=== PATIENT | female | born 1985 | race African-American/Black ===

== ENCOUNTER 2020-08-24 13:09 | Emergency (ER) | payer OTHER, SELFPAY | END 2020-08-24 13:42 | disposition left against medical advice (07) | LOC: ERS 13:09 | DX: R05 Cough (principal); R53.83 Other fatigue; R51.9 Headache, unspecified; Z21 Asymptomatic human immunodeficiency virus [HIV] infection status | CPT/HCPCS: 99283 ==

== ENCOUNTER 2024-07-09 12:54 | Emergency (ER) | payer OTHER, SELFPAY ==
[2024-07-09 13:46] LABS: #Basophils Less than 0.03 10x3/uL (0.0-0.2); %Basophils 0.3 % (0.0-1.0); %Eosinophils 2.4 % (0.0-10.0); %Lymphocytes 26.6 % (21.0-51.0); %Monocytes 9.2 % (0.0-10.0); Hematocrit 37.7 % (36.0-47.0); Hemoglobin 11.2 g/dL (12.0-16.0); Mean Corpuscular HGB CONC 29.7 g/dL (32.0-36.0); Mean Corpuscular Hemoglobin 25.1 pg (27.0-31.0); Mean Corpuscular Volume 84.3 fL (78.0-98.0); Mean Platelet Volume 8.9 fL (7.4-10.4); Platelet Count 289 10x3/uL (130-400); Red Blood Cell (RBC) Count 4.47 mill/uL (4.20-5.40)
[2024-07-09 14:04] LABS: ALT (SGPT) 15 U/L (8-55); AST (SGOT) 19 U/L (5-34); Albumin 3.6 g/dL (3.5-5.0); Alkaline Phosphatase 103 U/L (40-110); Anion Gap 9 mmol/L (10-20); BUN (Urea Nitrogen) 7 mg/dL (7.0-18.7); Bilirubin, Total 0.2 mg/dL (0.2-1.2); Calc. Creatinine Clearance 0 mL/min (70-130); Calcium 8.9 mg/dL (7.8-10.44); Carbon Dioxide 24 mmol/L (22-29); Chloride 108 mmol/L (98-107); Estimated GFR 114; Globulin 5.1 g/dL (2.4-3.5); Glucose 96 mg/dL (70-105); Potassium 3.7 mmol/L (3.5-5.1); Protein, Total 8.7 g/dL (6.0-8.3); Sodium 137 mmol/L (136-145)
[2024-07-09 16:42] LABS: BHCG - Serum Negative (NEGATIVE); Pregs Control Background? CLEAR/WHITE (CLR/WHITE); Pregs Control Bar Appear? YES (CONTROL BAR)
[2024-07-10 13:42] LABS: %CD4 (Helper/Inducer) 15.3 % (30.8-58.5); Absolute CD4 138 /uL (359-1519); Lymphocytes/Gated Cell Count 0.9 x10E3/uL (0.7-3.1); Total Lymphocyte 26 % (Not Estab.); WBC Total Count 3.5 x10E3/uL (3.4-10.8)
== END 2024-07-09 18:15 | disposition home or self-care (01) ==
LOC: ERS 12:54
DX: M25.562 Pain in left knee (principal); R59.9 Enlarged lymph nodes, unspecified; R53.81 Other malaise; B20 Human immunodeficiency virus [HIV] disease
CPT/HCPCS: 36415; 36416; 71046; 80053; 83605; 84703; 85025; 86141; 86361; 87040; 87428

== ENCOUNTER 2024-09-09 16:07 | Emergency (ER) | payer OTHER ==
[2024-09-09 17:00] LABS: #Basophils Less than 0.03 10x3/uL (0.0-0.2); %Basophils 0.3 % (0.0-1.0); %Lymphocytes 21.5 % (21.0-51.0); %Monocytes 7.1 % (0.0-10.0); %Neutrophils 69.8 % (42.0-75.0); Hematocrit 37.7 % (36.0-47.0); Hemoglobin 11.2 g/dL (12.0-16.0); Mean Corpuscular HGB CONC 29.7 g/dL (32.0-36.0); Mean Corpuscular Hemoglobin 24.2 pg (27.0-31.0); Mean Corpuscular Volume 81.6 fL (78.0-98.0); Mean Platelet Volume 8.5 fL (7.4-10.4); Platelet Count 254 10x3/uL (130-400); RBC Distribution Width 17.1 % (11.5-14.5); Red Blood Cell (RBC) Count 4.62 mill/uL (4.20-5.40)
[2024-09-09 17:09] LABS: BHCG - Serum Negative (NEGATIVE); Pregs Control Background? CLEAR/WHITE (CLR/WHITE); Pregs Control Bar Appear? YES (CONTROL BAR)
[2024-09-09 17:18] LABS: Acetaminophen Less than 10 mcg/mL (Less than 10); Alcohol Less than 10.0 mg/dL (Less than 10); Salicylate Less than 8.0 mg/dL (Less than 8.0)
[2024-09-09 17:19] LABS: ALT (SGPT) 24 U/L (8-55); AST (SGOT) 27 U/L (5-34); Albumin 3.4 g/dL (3.5-5.0); Alkaline Phosphatase 104 U/L (40-110); Anion Gap 12 mmol/L (10-20); BUN (Urea Nitrogen) 9 mg/dL (7.0-18.7); Bilirubin, Total 0.1 mg/dL (0.2-1.2); Calc. Creatinine Clearance 0 mL/min (70-130); Calcium 8.6 mg/dL (7.8-10.44); Carbon Dioxide 23 mmol/L (22-29); Chloride 107 mmol/L (98-107); Estimated GFR 112; Globulin 5.2 g/dL (2.4-3.5); Glucose 82 mg/dL (70-105); Protein, Total 8.6 g/dL (6.0-8.3); Sodium 138 mmol/L (136-145)
[2024-09-09 17:21] LABS: Pregnancy Test - Urine (BHCG) Negative (Negative); Pregu Control Bar Appear? YES (CONTROL BAR)
[2024-09-09 17:22] LABS: Pregu Control Background? CLEAR/WHITE (CLR/WHITE); Specific Gravity 1.022 (1.002-1.036)
[2024-09-09 17:27] LABS: Amphetamine Not Detected (NotDetected); Barbiturates Screen Not Detected (NotDetected); Benzodiazepine Screen Not Detected (NotDetected); Cocaine Metabolite Screen Not Detected (NotDetected); Methadone Not Detected (NotDetected); Methamphetamine Not Detected (NotDetected); Opiate Screen Not Detected (NotDetected); Oxycodone Screen Not Detected (NotDetected); Phencyclidine (PCP) Not Detected (NotDetected); THC/Cannabinoid Screen Not Detected (NotDetected); Tricyclic Screen Not Detected (NotDetected)
== END 2024-09-09 23:40 ==
LOC: ERS 16:07
DX: F32.2 Major depressive disorder, single episode, severe without psychotic features (principal); B20 Human immunodeficiency virus [HIV] disease
CPT/HCPCS: 36415; 80053; 80306; 80307; 81025; 84443; 84703; 85025; 99285

== ENCOUNTER 2024-09-30 19:45 | Emergency (ER) | payer OTHER ==
[~2024-09-30 19:45] MED LIST: Iopamidol-370 76% 500 ML MDV (1 ML CHARGE) ONE
[2024-09-30] MEDS ORDERED: Ketorolac Tromethamine 30 MG (1 mL) VIAL ONE (20:14)
[2024-09-30 20:28] LABS: #Basophils Less than 0.03 10x3/uL (0.0-0.2); %Basophils 0.2 % (0.0-1.0); %Eosinophils 1.7 % (0.0-10.0); %Lymphocytes 19.4 % (21.0-51.0); %Monocytes 5.3 % (0.0-10.0); Hematocrit 35.2 % (36.0-47.0); Hemoglobin 10.8 g/dL (12.0-16.0); Mean Corpuscular HGB CONC 30.7 g/dL (32.0-36.0); Mean Corpuscular Hemoglobin 24.8 pg (27.0-31.0); Mean Corpuscular Volume 80.9 fL (78.0-98.0); Platelet Count 313 10x3/uL (130-400); RBC Distribution Width 17.6 % (11.5-14.5); Red Blood Cell (RBC) Count 4.35 mill/uL (4.20-5.40)
[2024-09-30 20:49] LABS: ALT (SGPT) 13 U/L (8-55); AST (SGOT) 20 U/L (5-34); Albumin 3.5 g/dL (3.5-5.0); Alkaline Phosphatase 103 U/L (40-110); Anion Gap 13 mmol/L (10-20); BUN (Urea Nitrogen) 8 mg/dL (7.0-18.7); Bilirubin, Total 0.1 mg/dL (0.2-1.2); Calc. Creatinine Clearance 0 mL/min (70-130); Calcium 8.6 mg/dL (7.8-10.44); Carbon Dioxide 19 mmol/L (22-29); Chloride 111 mmol/L (98-107); Estimated GFR 116; Globulin 5.4 g/dL (2.4-3.5); Glucose 100 mg/dL (70-105); Potassium 3.5 mmol/L (3.5-5.1); Protein, Total 8.9 g/dL (6.0-8.3); Sodium 139 mmol/L (136-145)
[2024-09-30 20:50] LABS: Troponin I Less than 0.010 ng/mL (< 0.028)
== END 2024-09-30 23:17 | disposition home or self-care (01) ==
LOC: ERS 19:45
DX: R29.810 Facial weakness (principal); R29.701 NIHSS score 1; Z55.6 Problems related to health literacy; Z53.8 Procedure and treatment not carried out for other reasons
CPT/HCPCS: 36415; 70496; 70498; 80053; 84484; 85025; 93005; 96374; J1885; Q9967

== ENCOUNTER 2024-12-04 10:56 | Emergency (ER) | payer OTHER ==
[2024-12-04] MEDS ORDERED: Metoclopramide HCl 10 MG (2 mL) VIAL ONE (12:10)
[2024-12-04] MEDS ORDERED: diphenhydrAMINE 50 MG/ML VIAL ONE (12:10)
[2024-12-04] MEDS ORDERED: Ketorolac Tromethamine 30 MG (1 mL) VIAL ONE (14:09)
[2024-12-04 15:01] LABS: #Basophils Less than 0.03 10x3/uL (0.0-0.2); #Eosinophils Less than 0.03 10x3/uL (0.0-0.7); %Basophils 0.4 % (0.0-1.0); %Eosinophils 0.8 % (0.0-10.0); %Lymphocytes 27.1 % (21.0-51.0); %Monocytes 6.9 % (0.0-10.0); %Neutrophils 64.8 % (42.0-75.0); Hematocrit 35.1 % (36.0-47.0); Hemoglobin 10.6 g/dL (12.0-16.0); Mean Corpuscular HGB CONC 30.2 g/dL (32.0-36.0); Mean Corpuscular Hemoglobin 24.3 pg (27.0-31.0); Mean Corpuscular Volume 80.3 fL (78.0-98.0); Mean Platelet Volume 10.2 fL (7.4-10.4); Platelet Count 160 10x3/uL (130-400); RBC Distribution Width 17.8 % (11.5-14.5); Red Blood Cell (RBC) Count 4.37 mill/uL (4.20-5.40)
[2024-12-04] MEDS ORDERED: Acetaminophen 500 MG TAB ONE (15:24)
[2024-12-04 15:28] LABS: Troponin I Less than 0.010 ng/mL (< 0.028)
[2024-12-04 15:29] LABS: BHCG - Serum Negative (NEGATIVE); Pregs Control Background? CLEAR/WHITE (CLR/WHITE); Pregs Control Bar Appear? YES (CONTROL BAR)
[2024-12-04 15:42] LABS: ALT (SGPT) 12 U/L (Less than 34); AST (SGOT) 43 U/L (11-34); Albumin 3.5 g/dL (3.1-4.5); Alkaline Phosphatase 89 U/L (40-110); Anion Gap 13 mmol/L (10-20); BUN (Urea Nitrogen) 5 mg/dL (7.0-18.7); Bilirubin, Total 0.2 mg/dL (0.3-1.2); Calc. Creatinine Clearance 0 mL/min (70-130); Calcium 8.4 mg/dL (7.8-10.44); Carbon Dioxide 23 mmol/L (22-29); Chloride 107 mmol/L (98-107); Estimated GFR 114; Globulin 5.3 g/dL (2.4-3.5); Glucose 73 mg/dL (70-105); Lipase 28 U/L (8-78); Magnesium 1.7 mg/dL (1.6-2.6); Potassium 4.7 mmol/L (3.5-5.1); Protein, Total 8.8 g/dL (6.0-8.3); Sodium 138 mmol/L (136-145)
[2024-12-04 15:55] LABS: Bilirubin Negative (Negative); Blood, Urine Negative (Negative); CAUTI Indications for Culture Alt mental st,lethar; Clarity Turbid (Clear); Glucose, Urine (Dipstick) Normal (Negative); Ketone, Urine Negative (Negative); Leukocyte 250 Leu/uL (Negative); Nitrite 2+ (Negative); Protein, Urine (Dipstick) 10 mg/dL (Neg-Trace); RBC/HPF 0-3 HPF (0-3); Specific Gravity, Urine 1.021 (1.002-1.036); Urobilinogen Normal mg/dL (Less than 2); WBC/HPF 21-50 HPF (0-3)
[2024-12-04 15:59] LABS: Bacteria/HPF 1+ HPF (None Seen)
[2024-12-04 16:01] LABS: Urine Culture Reflex Yes Yes
[2024-12-05 16:14] LABS: %CD4 (Helper/Inducer) 9.3 % (30.8-58.5); Absolute CD4 65 /uL (359-1519); Lymphocytes/Gated Cell Count 0.7 x10E3/uL (0.7-3.1); Total Lymphocyte 27 % (Not Estab.); WBC Total Count 2.5 x10E3/uL (3.4-10.8); nRBC 1 % (0 - 0)
== END 2024-12-04 16:43 | disposition home or self-care (01) ==
LOC: ERS 10:56
DX: N39.0 Urinary tract infection, site not specified (principal); R51.9 Headache, unspecified
CPT/HCPCS: 70450; 71045; 80053; 81001; 83690; 83735; 84484; 84703; 85025; 86361; 87077; 87086; 87186; 87428; 93005; 96374; 96375; J1200; J1885; J2765

== ENCOUNTER 2025-05-24 22:04 | Emergency (ER) | payer OTHER ==
[2025-05-25 00:18] LABS: #Basophils Less than 0.03 10x3/uL (0.0-0.2); #Eosinophils 0.04 10x3/uL (0.0-0.7); #Monocytes 0.22 10x3/uL (0.11-0.59); #Neutrophils 2.63 10x3/uL (1.40-6.50); %Basophils 0.3 % (0.0-1.0); %Eosinophils 1.0 % (0.0-10.0); %Lymphocytes 25.6 % (21.0-51.0); %Monocytes 5.6 % (0.0-10.0); %Neutrophils 67.2 % (42.0-75.0); Hematocrit 35.6 % (36.0-47.0); Hemoglobin 10.9 g/dL (12.0-16.0); Mean Corpuscular Hemoglobin 24.5 pg (27.0-31.0); Mean Corpuscular Volume 80.2 fL (78.0-98.0); Platelet Count 235 10x3/uL (130-400); Red Blood Cell (RBC) Count 4.44 mill/uL (4.20-5.40); White Blood Cell (WBC) Count 3.91 10x3/uL (4.8-10.8)
[2025-05-25 00:32] LABS: BHCG - Serum Negative (NEGATIVE); Pregs Control Background? CLEAR/WHITE (CLR/WHITE); Pregs Control Bar Appear? YES (CONTROL BAR)
[2025-05-25 00:41] LABS: ALT (SGPT) 19 U/L (Less than 34); AST (SGOT) 30 U/L (11-34); Albumin 3.4 g/dL (3.1-4.5); Alkaline Phosphatase 91 U/L (40-110); Anion Gap 13 mmol/L (10-20); BUN (Urea Nitrogen) 10 mg/dL (7.0-18.7); Bilirubin, Total 0.2 mg/dL (0.3-1.2); Calc. Creatinine Clearance 0 mL/min (70-130); Calcium 8.5 mg/dL (7.8-10.44); Carbon Dioxide 20 mmol/L (22-29); Chloride 108 mmol/L (98-107); Globulin 4.9 g/dL (2.4-3.5); Glucose 102 mg/dL (70-105); Lipase 40 U/L (8-78); Potassium 3.8 mmol/L (3.5-5.1); Sodium 137 mmol/L (136-145)
== END 2025-05-25 01:24 | disposition home or self-care (01) ==
LOC: ERS 22:04
DX: R05.9 Cough, unspecified (principal); B20 Human immunodeficiency virus [HIV] disease
CPT/HCPCS: 36415; 71045; 80053; 83690; 84484; 84703; 85025; 93005

== ENCOUNTER 2025-06-04 21:05 | Emergency (ER) | payer OTHER ==
[2025-06-04 22:16] LABS: #Basophils Less than 0.03 10x3/uL (0.0-0.2); #Eosinophils 0.05 10x3/uL (0.0-0.7); #Monocytes 0.26 10x3/uL (0.11-0.59); #Neutrophils 2.38 10x3/uL (1.40-6.50); %Basophils 0.5 % (0.0-1.0); %Eosinophils 1.3 % (0.0-10.0); %Lymphocytes 30.3 % (21.0-51.0); %Monocytes 6.7 % (0.0-10.0); %Neutrophils 60.9 % (42.0-75.0); Hematocrit 33.8 % (36.0-47.0); Hemoglobin 10.1 g/dL (12.0-16.0); Mean Corpuscular Hemoglobin 24.7 pg (27.0-31.0); Mean Corpuscular Volume 82.6 fL (78.0-98.0); Platelet Count 231 10x3/uL (130-400); Red Blood Cell (RBC) Count 4.09 mill/uL (4.20-5.40); White Blood Cell (WBC) Count 3.90 10x3/uL (4.8-10.8)
[2025-06-04 22:47] LABS: Acetaminophen Less than 10 mcg/mL (Less than 10); Salicylate Less than 8.0 mg/dL (Less than 8.0)
[2025-06-04 22:48] LABS: ALT (SGPT) 16 U/L (Less than 34); AST (SGOT) 24 U/L (11-34); Albumin 3.6 g/dL (3.1-4.5); Alkaline Phosphatase 81 U/L (40-110); Anion Gap 15 mmol/L (10-20); BUN (Urea Nitrogen) 10 mg/dL (7.0-18.7); Bilirubin, Total 0.2 mg/dL (0.3-1.2); Calc. Creatinine Clearance 0 mL/min (70-130); Calcium 8.8 mg/dL (7.8-10.44); Carbon Dioxide 25 mmol/L (22-29); Chloride 109 mmol/L (98-107); Globulin 4.2 g/dL (2.4-3.5); Glucose 91 mg/dL (70-105); Potassium 4.4 mmol/L (3.5-5.1); Sodium 145 mmol/L (136-145)
[2025-06-05 00:31] LABS: Bacteria/HPF None Seen HPF (None Seen); CAUTI Indications for Culture Alt mental st,lethar; Glucose, Urine (Dipstick) Normal (Negative); Leukocyte 250 Leu/uL (Negative); Protein, Urine (Dipstick) Negative (Neg-Trace); RBC/HPF 0-3 HPF (0-3); Specific Gravity, Urine 1.011 (1.002-1.036)
[2025-06-05 00:34] LABS: Cocaine Metabolite Screen Negative (Negative); Pregnancy Test - Urine (BHCG) Negative (Negative); Pregu Control Background? CLEAR/WHITE (CLR/WHITE); Pregu Control Bar Appear? YES (CONTROL BAR); THC/Cannabinoid Screen Negative (Negative); Tricyclic Screen Negative (Negative)
[2025-06-05 00:45] LABS: Urine Culture Reflex Yes Yes
== END 2025-06-05 04:00 | disposition home or self-care (01) ==
LOC: ERS 21:05
DX: F41.9 Anxiety disorder, unspecified (principal); R44.1 Visual hallucinations; F32.A Depression, unspecified
CPT/HCPCS: 36415; 80053; 80306; 80307; 81001; 81025; 85025; 87086; 93005; 99285

== ENCOUNTER 2025-09-07 19:00 | Emergency (ER) | payer OTHER ==
[2025-09-07] MEDS ORDERED: Dexamethasone 10 MG/ML VIAL ONE (21:30)
[2025-09-07] MEDS ORDERED: valACYclovir 500 MG TAB ONE (21:30)
[2025-09-07] MEDS ORDERED: HYDROcodone/Acetaminophen 10/325 mg Tablet ONE (21:31)
[2025-09-07] MEDS ORDERED: Proparacaine 0.5% Opth 15 ML BOT ONE (21:31)
== END 2025-09-08 01:47 | disposition home or self-care (01) ==
LOC: ERS 19:00
DX: B02.30 Zoster ocular disease, unspecified (principal); B20 Human immunodeficiency virus [HIV] disease
CPT/HCPCS: 70481; 96374; J1100; Q9967